=== PATIENT | female | born 1990 ===

== ENCOUNTER 2025-02-06 15:22 | Outpatient (CLI) | payer MEDICAID ==
[2025-02-06 15:41] LABS: Hematocrit 36.8 % (36.0-46.0); Hemoglobin 12.8 g/dL (12.2-16.2); Mean Corpuscular Hemoglobin 31.3 pg (28.0-32.0); Mean Corpuscular Volume 90.2 fL (80.0-100.0); Nucleated Red Blood Cells % 0.1 %
[2025-02-07] MEDS ORDERED: LEVO100T8 PO (11:25)
[2025-02-08 05:08] LABS: Chlamydia Trachomatis, NAA Negative (Negative); Neisseria gonorrhoeae, NAA Negative (Negative)
== END 2025-02-07 17:00 | disposition home or self-care (01) ==
LOC: LAB 15:22
PROVIDERS: ATTEND Obstetrics & Gynecology
DX: Z34.80 Encounter for supervision of other normal pregnancy, unspecified trimester (principal); Z72.51 High risk heterosexual behavior
CPT/HCPCS: 36415; 84443; 85025; 86780

== ENCOUNTER 2025-02-07 00:50 | Observation (INO) | payer MEDICAID ==
--- NOTE | 2025-02-07 10:59 | DVH ---
BIOPHYSICAL PROFILE HISTORY: AMA/hypothyroid TECHNIQUE: Multiple transabdominal real-time grayscale sonographic images through the gravid uterus of the fetus with duplex Doppler color flow and M-mode spectral analysis FINDINGS: BIOPHYSICAL PROFILE: breathing score: 2 movement score: 2 tone score: 2 Quantitative JOSSE score: 2 (JOSSE: 9.7 Cm.) Total score: 8/8 The cervix obscured by head Single live fetus in cephalic presentation. heart rate 143 beats per minute. Posterior Grade 2 placenta without previa or abruption Single live fetus at 35 weeks 3 days Biophysical profile score 8/8 corresponding to an NIC of 03/11/2025 IMPRESSION: 1. Biophysical profile score: 8/8 HS:Y
[2025-02-07] MEDS ORDERED: LEVO100T8 PO (11:25)
--- NOTE | 2025-02-08 12:43 | DVHDS2 ---
Physician Discharge Progress N Final Diagnosis: hypothyroidism 35 wks ,ama Operations or Procedures: Operations or Procedures nst reactive reviwed,sono Condition on Discharge: Good Disposition: Home Discharge Instructions: Diet: Regular Activity: No Restrictions, As Tolerated Follow Up/Referral: Follow [facility] next February 14 at 11:00 am for NST/BPP Medications: na Follow Up Care: Specialist: 1w Discharge Statement: "Patient was advised to return to the ER or call 911 if any headaches, dizziness, shortness of breath, chest pain, abdominal pain, bleeding, fevers, or worsening of medical condition. Patient was counseled about treatment plan, medications, possible side effects, patientverbalized understanding. All questions were answered to the best of my ability. This discharge took greater then 30 minutes in planning, reviewing docum entation, counseling the patient, and discussing with other team members." Visit Coding OBGYN Date of Service: Feb 07, 2025 Billing Provider: ANITRA BEAVER DO COUNTER MAKER Common Visit Codes: [id number] OBS CARE (HIGH) COUNTER MAKER Procedure Codes: 06948-57- NON-STRESS TEST ANITRA BEAVER DO Feb 08, 2025 12:43
== END 2025-02-07 11:48 | disposition home or self-care (01) ==
LOC: UNDOADMOB 10:17 → LDRP 10:17 → UNDODISOB 11:48
PROVIDERS: ADMIT Obstetrics & Gynecology; ATTEND Obstetrics & Gynecology
DX: O99.283 Endocrine, nutritional and metabolic diseases complicating pregnancy, third trimester (principal); E03.9 Hypothyroidism, unspecified; O09.523 Supervision of elderly multigravida, third trimester; Z3A.35 35 weeks gestation of pregnancy; Z98.890 Other specified postprocedural states
CPT/HCPCS: 59025; 76819; 81002; 94760; G0378

== ENCOUNTER 2025-02-14 06:10 | Observation (INO) | payer MEDICAID ==
[~2025-02-14 06:10] MED LIST: LEVO100T8 PO
--- NOTE | 2025-02-14 11:29 | DVH ---
BIOPHYSICAL PROFILE HISTORY: AMA/Hypothyroidism Comparison Study: US BIOPHYSICAL PROFILE on DOS: 02/07/25 TECHNIQUE: Multiple real-time grayscale sonographic images through the gravid uterus of the fetus wi th duplex Doppler color flow and M-mode spectral analysis FINDINGS: BIOPHYSICAL PROFILE: breathing score: 2 movement score: 2 tone score: 2 Quantitative JOSSE score: 2 (JOSSE: 9.7 Cm.) Total score: 8 The cervix is not visualized Single live fetus in cephalic presentation. heart rate 139 beats per minute. Posterior placenta without previa or abruption IMPRESSION: Biophysical profile score: 8
[2025-02-14] MEDS ORDERED: PREN27TA7 OR (11:53)
--- NOTE | 2025-02-14 12:01 | DVHDS2 ---
Physician Discharge Progress N Final Diagnosis: hypothyroid 36wks Operations or Procedures: Operations or Procedures nst reactive reviwed,sono Condition on Discharge: Good Disposition: Home Discharge Instructions: Diet: Regular Activity: No Restrictions, As Tolerated Medications: na Follow Up Care: Specialist: 4d Discharge Statement: "Patient was advised to return to the ER or call 911 if any headaches, dizziness, shortness of breath, chest pain, abdominal pain, bleeding, fevers, or worsening of medical condition. Patient was counseled about treatment plan, medications, possible side effects, patientverbalized understanding. All questions were answered to the best of my ability. This discharge took greater then 30 minutes in planning, reviewing do cumentation, counseling the patient, and discussing with other team members." Visit Coding OBGYN Date of Service: Feb 14, 2025 Billing Provider: ANITRA BEAVER DO SPEED OPERATOR Common Visit Codes: [id number] OBS CARE (HIGH) SPEED OPERATOR Procedure Codes: 49407-86- NON-STRESS TEST ANITRA BEAVER DO Feb 14, 2025 12:01
== END 2025-02-14 12:03 | disposition home or self-care (01) ==
LOC: UNDOADMOB 10:40 → LDRP 10:40
PROVIDERS: ADMIT Obstetrics & Gynecology; ATTEND Obstetrics & Gynecology
DX: O99.283 Endocrine, nutritional and metabolic diseases complicating pregnancy, third trimester (principal); E03.9 Hypothyroidism, unspecified; Z3A.36 36 weeks gestation of pregnancy; Z98.890 Other specified postprocedural states
CPT/HCPCS: 59025; 76819; 81002; 94760; G0378

== ENCOUNTER 2025-02-21 12:47 | Observation (INO) | payer MEDICAID ==
[~2025-02-21 12:47] MED LIST changes: +PREN27TA7 OR
--- NOTE | 2025-02-21 14:16 | DVH ---
BIOPHYSICAL PROFILE HISTORY: AMA, Hypothyroidism TECHNIQUE: Multiple transabdominal real-time grayscale sonographic images through the gravid uterus o f the fetus with duplex doppler color flow and M-mode spectral analysis FINDINGS: BIOPHYSICAL PROFILE: breathing score: 2 movement score: 2 tone score: 2 Quantitative JOSSE score: 2 (JOSSE: 10.8 cm.) Total score: 8/8 Single live fetus in cephalic presentation. heart rate 144 beats per minute. Fundal/posterior placenta without previa or abruption Biophysical profile score 8/8 corresponding to an NIC of 03/11/25 IMPRESSION: Biophysical profile score: 8/8
--- NOTE | 2025-02-22 12:39 | DVHDS2 ---
Physician Discharge Progress N Final Diagnosis: ama,hypothyroid 36wks Operations or Procedures: Operations or Procedures nst reactive reviwed,sono Condition on Discharge: Good Disposition: Home Discharge Instructions: Diet: Regular Activity: No Restrictions, As Tolerated Medications: na Follow Up Care: Specialist: 1w Discharge Statement: "Patient was advised to return to the ER or call 911 if any headaches, dizziness, shortness of breath, chest pain, abdominal pain, bleeding, fevers, or worsening of medical condition. Patient was counseled about treatment plan, medications, possible side effects, patientverbalized understanding. All questions were answered to the best of my ability. This discharge took greater then 30 minutes in planning, reviewing documentation, counseling the patient, and discussing with other team members." Visit Coding OBGYN Date of Service: Feb 21, 2025 Billing Provider: ANITRA BEAVER DO BARREL RAISER Common Visit Codes: [id number] OBS CARE (HIGH) BARREL RAISER Procedure Codes: 17438-22- NON-STRESS TEST ANITRA BEAVER DO Feb 22, 2025 12:39
== END 2025-02-21 14:34 | disposition home or self-care (01) ==
LOC: LDRP 12:47
PROVIDERS: ADMIT Obstetrics & Gynecology; ATTEND Obstetrics & Gynecology
DX: O99.283 Endocrine, nutritional and metabolic diseases complicating pregnancy, third trimester (principal); E03.9 Hypothyroidism, unspecified; O09.523 Supervision of elderly multigravida, third trimester; Z3A.36 36 weeks gestation of pregnancy; Z79.899 Other long term (current) drug therapy; Z98.890 Other specified postprocedural states
CPT/HCPCS: 59025; 76819; 81002; 94760; G0378

== ENCOUNTER 2025-02-28 07:05 | Observation (INO) | payer MEDICAID ==
--- NOTE | 2025-02-28 16:53 | DVH ---
BIOPHYSICAL PROFILE HISTORY: AMA/ Hypothyroid TECHNIQUE: Multiple real-time grayscale sonographic images through the gravid uterus of the fetus wi th duplex Doppler color flow. FINDINGS: BIOPHYSICAL PROFILE: breathing score: 0 movement score: 2 tone score: 2 Quantitative JOSSE score: 2 Total score: 6 out of 8 Single live intrauterine . heart rate 142 beats per minute. Cephalic lie. Placenta posteriorly/ fundally positioned. JOSSE 10.5 cm. IMPRESSION: Biophysical profile score: 6 out of 8. No breathing movements seen. Bekah present and aware at time of scan.
[2025-03-01] MEDS ORDERED: DOCU-94 PO (08:05)
[2025-03-01] MEDS ORDERED: HYDR-4072 PO (08:05)
[2025-03-01] MEDS ORDERED: IBUP-1456 PO (08:05)
--- NOTE | 2025-03-01 08:20 | DVHDS2 ---
Physician Discharge Progress N Final Diagnosis: AMA, Hypothroid 38wks Operations or Procedures: Operations or Procedures nst reactive reviwed,sono Condition on Discharge: Good Disposition: Home Discharge Instructions: Diet: Regular Activity: No Restrictions, As Tolerated Follow Up/Referral: Return tonight at 8pm for repeat ultrasound and come in at 4am on F[place] for Section Medications: na Follow Up Care: Specialist: 1d Discharge Statement: "Patient was advised to return to the ER or call 911 if any headaches, dizziness, shortness of breath, chest pain, abdominal pain, bleeding, fevers, or worsening of medical condition. Patient was counseled about treatment plan, medications, possible side effects, patientverbalized understanding. All questions were answered to the best of my ability. This discharge took greater then 30 minutes in planning, reviewing documentation, counseling the patient, and discussing with other team members." Visit Coding OBGYN Date of Service: Feb 28, 2025 Billing Provider: ANITRA BEAVER DO MOTEL MANAGER Common Visit Codes: 44901-[id number] INP/OBS CARE (HIGH) MOTEL MANAGER Procedure Codes: 45099-70- NON-STRESS TEST ANITRA BEAVER DO Mar 01, 2025 08:20
== END 2025-02-28 16:23 | disposition home or self-care (01) ==
LOC: LDRP 12:45
PROVIDERS: ADMIT Obstetrics & Gynecology; ATTEND Obstetrics & Gynecology
DX: O99.283 Endocrine, nutritional and metabolic diseases complicating pregnancy, third trimester (principal); E03.9 Hypothyroidism, unspecified; O09.523 Supervision of elderly multigravida, third trimester; Z3A.38 38 weeks gestation of pregnancy; Z79.899 Other long term (current) drug therapy; Z98.890 Other specified postprocedural states
CPT/HCPCS: 59025; 76819; 94760; G0378

== ENCOUNTER 2025-02-28 19:44 | Observation (INO) | payer MEDICAID ==
[~2025-02-28] VITALS: Ht 165.1 cm; Wt 88.0 kg
--- NOTE | 2025-02-28 21:53 | DVH ---
BIOPHYSICAL PROFILE HISTORY: repeat BPP compared to previous BPP done at 1449 on the February TECHNIQUE: Multiple transabdominal real-time grayscale sonographic images through the gravid uterus of the fetus with duplex Doppler color flow and M-mode spectral analysis FINDINGS: BIOPHYSICAL PROFILE: breathing score: 2 movement score: 2 tone score: 2 Quantitative JOSSE score: 2 (JOSSE: 9.2 Cm.) Total score: 8/8 The cervix obscured by Single live fetus in cephalic presentation. heart rate 138 beats per minute. Posterior Posterior Grade 2 placenta without previa or abruption Single live fetus at 38 weeks 3 days Biophysical profile score 8/8 corresponding to an NIC of 03/11/2025 IMPRESSION: 1. Biophysical profile score: 8/8 2. breathing was visualized on the current study.
--- NOTE | 2025-03-01 05:27 | DVHHP ---
ADMIT DATE: 02/28/2025 CHIEF COMPLAINT: Desires repeat section with bilateral tubal ligation. HISTORY OF PRESENT ILLNESS: The patient is a 34-year-old 2, para 1 with EDC ____ estimated gestational age of 38 plus weeks, admitted for repeat section with bilateral tubal ligation. The patient failed her BPP. Repeat BPP was okay; however, decision was made to proceed with couple of days earlier than ____ earlier than 39 weeks due to failed BPP. The patient has hypothyroidism and has advanced maternal age. PAST MEDICAL HISTORY: Hypothyroidism. PAST SURGICAL HISTORY: . SOCIAL HISTORY: None. FAMILY HISTORY: None. OBSTETRIC AND GYNECOLOGIC HISTORY: One section. REVIEW OF SYSTEMS: Consistent with HPI. PHYSICAL EXAMINATION: VITAL SIGNS: Stable, afebrile. HEENT: Within normal limits. CARDIOVASCULAR: Regular rate and rhythm. LUNGS: Clear to auscultation. BREASTS: Symmetrical, no masses. ABDOMEN: Gravid. Positive heart. PELVIC: External genitalia within normal. Vagina normal. Cervix 1 cm, 50% effaced. EXTREMITIES: No clubbing, cyanosis or edema. IMPRESSION: * Intrauterine at 38 plus weeks. * Failed BPP. * section x 1, desires repeat. * Hypothyroid. * AMA. * Desires repeat section with bilateral tubal ligation. PLAN: Informed consent obtained. Risks, complications of surgery including infection, bleeding, hematoma formation, injury to bowel and bladder, surrounding organ, possibility of DVT, pulmonary embolism, and risks of anesthesia discussed with the patient. Options reviewed. All questions answered. The patient fully understands. She wishes to proceed the planned procedure. DO KRAIG Ochoa/ELTON/ROBBIE TID: [id number] RECEIPT: [id number]
[2025-03-01] MEDS ORDERED: DOCU-94 PO (08:05)
[2025-03-01] MEDS ORDERED: HYDR-4072 PO (08:05)
[2025-03-01] MEDS ORDERED: IBUP-1456 PO (08:05)
== END 2025-02-28 21:14 | disposition home or self-care (01) ==
LOC: LDRP 19:44
PROVIDERS: ADMIT Obstetrics & Gynecology; ATTEND Obstetrics & Gynecology
DX: O99.283 Endocrine, nutritional and metabolic diseases complicating pregnancy, third trimester (principal); E03.9 Hypothyroidism, unspecified; Z3A.38 38 weeks gestation of pregnancy; Z98.890 Other specified postprocedural states
CPT/HCPCS: 76819; G0378

== ENCOUNTER 2025-03-01 03:59 | Inpatient (IN) | payer MEDICAID ==
[2025-02-28 15:59] LABS: Urine Budding Yeast FEW /hpf (None Seen); Urine Protein, UAD TRACE (Negative)
[2025-02-28 16:02] LABS: Amphetamine Screen, Urine Neg (NEGATIVE); Barbiturate Scree,Urine Neg (NEGATIVE); Benzodiazephine Screen, Urine Neg (NEGATIVE); Cannabinoid Screen, Urine Neg (NEGATIVE); Cocaine Screen, Urine Neg (NEGATIVE); Opiate Scree,Urine Neg (NEGATIVE); Phencyclidine Screen, Urine Neg (NEGATIVE)
[2025-02-28 16:23] LABS: Hematocrit 40.7 % (36.0-46.0); Hemoglobin 13.5 g/dL (12.2-16.2); Mean Corpuscular Hemoglobin 31.4 pg (28.0-32.0); Mean Corpuscular Volume 94.4 fL (80.0-100.0); Nucleated Red Blood Cells % 0.1 %
[2025-02-28 16:36] LABS: Alanine Aminotransferase 30 U/L (7-40); Albumin 3.7 g/dL (3.2-4.8); Anion Gap 9 (5-15); BUN/Creatinine Ratio 7.9 (10.0-20.0); Bilirubin, Total 0.4 mg/dL (0.2-1.0); Calcium 9.9 mg/dL (8.7-10.4); Carbon Dioxide 22 mmol/L (20-31); Chloride 104 mmol/L (98-107); Glucose 82 mg/dL (74-106); INR 0.9 (0.9-1.15); Partial Thromboplastin Time 24.9 SEC (24.5-34.5); Potassium 4.3 mmol/L (3.5-5.1); Prothrombin Time 9.6 sec (9.3-11.8); Total Protein 6.9 g/dL (5.7-8.2)
[2025-02-28 16:37] LABS: Alkaline Phosphatase 128 U/L (46-116); Blood Urea Nitrogen 5 mg/dL (9-23); Sodium 135 mmol/L (136-145)
[2025-03-01] VITALS (19 sets, daily range): BP systolic 105–125; BP diastolic 60–80; PULSE 54–80; RESP 16–18; TEMP 98.2–98.7; O2SAT 98–100
[~2025-03-01] VITALS: Ht 165.1 cm; Wt 88.0 kg
[2025-03-01] MEDS: LACTATED RINGER'S 1,000 ML IV SCH (04:30)
[2025-03-01] MEDS: LACTATED RINGER'S 1,000 ML IV ONE (05:38)
[2025-03-01] MEDS: ceFAZolin 2 GM/D5W50ml 50 ML IV ONE (06:43)
[2025-03-01] MEDS ORDERED: BUPIVACAINE/DEXTROSE MPF 0.75% 2 ML AMP IT ONE (07:01)
[2025-03-01] MEDS ORDERED: MORPHINE SULF PF 5 MG/10 ML VIAL ONE (07:01)
[2025-03-01] MEDS: TRANEXAMIC ACID 10 ML ONE (07:16)
[2025-03-01] MEDS ORDERED: PHENYLEPHRINE HCL 10 MG/ML VL ONE (07:31)
[2025-03-01] MEDS ORDERED: ONDANSETRON HCL 4 MG/2 ML VIAL ONE (07:31)
[2025-03-01] MEDS: CARBOPROST TROMETHAMINE 250 MCG/1ML VIAL IM ONE ×2 (07:45→08:01)
[2025-03-01] MEDS ORDERED: DIPHENOXYLATE W/ATROPINE 2.5 MG TAB ONE ×2 (07:54)
--- NOTE | 2025-03-01 07:59 | DVHOP2 ---
Operative Report DATE OF OPERATION: 03/01/25 PREOPERATIVE DIAGNOSES: 1. 38+WKS , desires repeat section.AMA,HYPOTHYROIDISM,FAILED BPP 2. Desires bilateral tubal ligation POSTOPERATIVE DIAGNOSES: 1. SAMNE,UTERINE ATONY 2. Desires bilateral tubal ligation PROCEDURES: Repeat section with bilateral tubal ligation via Filschie Clips SURGEON: Anitra Beaver D.O./CORAL ANESTHESIOLOGIST: Dr. GALVAN TYPE OF ANESTHESIA : ESTIMATED BLOOD LOSS: 800 mL CONSENT: The patient was informed of the risks and benefits of the procedure. These include but are not limited to , complications of anesthesia, postoperative infection, incomplete relief of symptoms, recurrence of symptoms, damage to blood vessels, nerves and tendons, deep venous thrombosis, pulmonary embolism and possible need for repeat surgery in the future. Surgery was opted. FINDINGS: Baby [F] with apgars [9] and [9]. Grossly normal appearing tubes and ovaries. UTERINE ATONY NOTED WHICH RESPONDED TO HEMOBATEX2 AND TXA TISSUE TO PATHOLOGY: Placenta. PROCEDURE IN DETAIL: The patient was taken to the operating room where she was placed under spinal anesthesia. She was then prepped and draped in the usual sterile manner in supine position with a leftward tilt. A Pfannenstiel skin incision was then made 2 cm above the symphysis pubis. This incision was carried to the underlying layer of fascia. The fascia was nicked in the midline and the incision was extended laterally. The superior aspect of the fascial incision was grasped and elevated. Underlying rectus muscle was dissected off bluntly. The same procedure was done to the inferior aspect of the fascial incision. The rectus muscles were then in the midline. Peritoneum was identified and entered. Peritoneal incision was extended superiorly and inferiorly with good visualization of the bladder. Bladder blade was inserted. Vesicouterine peritoneum was identified and entered. Lower uterine segment was incised in a transverse fashion. The infant was delivered from vertex presentation. The infant was baby [F] with Apgars of [9] and [9]. Placenta was then removed manually. Uterus was exteriorized and cleared off all clots and debris. Uterine incision was repaired using 0 Vicryl in a double-layered fashion. UTERINE ATONY NOTED,HEMOBATEX2 AND TXA GIVEN WHICH RESOLVED THE UTERINE ATONY. No bleeding was noted. Bilateral tubal ligation was then performed using [place]. Placed in the ampullary region and identifying the fimbria distally. The isthmic portion of the right tube was clipped using Filschie Clip. The same procedure was done on the opposite side. No bleeding was noted. Peritoneum was closed using 0 Vicryl, fascia was closed using 0 Maxon, and skin was closed using juan. Estimated blood loss was noted to be 500 mL. The patient tolerated the procedure well. She was taken to the recovery room in stable condition. Visit Coding OBGYN Date of Service: Mar 01, 2025 Billing Provider: ANITRA BEAVER DO STUCCO WORKER Common Visit Codes: [id number] INP/OBS CARE (HIGH) STUCCO WORKER Procedure Codes: 09501-RLHOV @ TIME OF , 48786-[id number] DELIVERY ONLY ANITRA BEAVER DO Mar 01, 2025 07:59
[2025-03-01] MEDS: LACT. RINGERS/OXYTOCIN 20UNITS 1,000 ML IV ONE (08:00)
[2025-03-01] MEDS ORDERED: ONDANSETRON HCL 4 MG/2 ML VIAL IV PRN ×3 (08:00→08:45)
[2025-03-01] MEDS: GUM (CHEWING) 1 GUM CHEW CHEW ONE (08:00)
--- NOTE | 2025-03-01 08:03 | POSTOP ---
Post-Operative Note Post-Operative Note Preop Diagnosis IUP AT 38WKS WITH FAILED BPP,AMA,DESIRES RCS WITH BTL,HYPOTHYROIDISM Postop Diagnosis: SAME Operation performed RCS WITH BTL Specimen BABY GIRL,APGARS 9-9 Anesthesia: Regional Anesthesiologist: CHELSEA Blood Loss(fluid mgmt) 800ML Surgeon Anitra Godfrey Core Manager CORAL Implant FILSCHIE CLIPS Complications & Mgmt NONE Additional Remarks H AND P [id number] Date 03/01/25 Time 08:00 Visit Coding OBGYN Date of Service: Mar 01, 2025 Billing Provider: ANITRA GODFREY DO ROBOT TECHNICIAN Common Visit Codes: [id number] INP/OBS CARE (HIGH) ROBOT TECHNICIAN Procedure Codes: 74981-MVMIS @ TIME OF , 99342-O-PVAPCNJ DELIVERY ONLY ANITRA GODFREY DO Mar 01, 2025 08:03
[2025-03-01] MEDS ORDERED: HYDR-4072 PO (08:05)
[2025-03-01] MEDS ORDERED: IBUP-1456 PO (08:05)
[2025-03-01] MEDS ORDERED: DOCU-94 PO (08:05)
[2025-03-01] MEDS ORDERED: diphenhydrAMINE HCL 50 MG/1 ML VL IV PRN (08:45)
[2025-03-01] MEDS: NALBUPHINE HCL 10 MG/1ml INJECTION SUBCUT ONE (08:45)
[2025-03-01] MEDS ORDERED: HYDROmorphone HCL 2 MG/ML VL/or syr IV PRN ×2 (08:45)
[2025-03-01] MEDS ORDERED: ACETAMINOPHEN IV 1000 MG/100ML (10MG/ML) IV PRN (08:45)
[2025-03-01] MEDS ORDERED: NALOXONE HCL 0.4 MG/ML VIAL IV PRN (08:45)
[2025-03-01] MEDS: ceFAZolin 1GM/50ML 50 ML IV SCH (14:33)
[2025-03-01] MEDS: ACETAMINOPHEN IV 1000 MG/100ML (10MG/ML) IV PRN (15:46)
[2025-03-01] MEDS: KETOROLAC TROMETH 30 MG/ML 1ML VIAL IV PRN (21:04)
[2025-03-01 22:02] LABS: Hematocrit 34.4 % (36.0-46.0); Hemoglobin 11.9 g/dL (12.2-16.2); Mean Corpuscular Hemoglobin 31.1 pg (28.0-32.0); Mean Corpuscular Volume 90.0 fL (80.0-100.0); Nucleated Red Blood Cells % 0.0 %
[2025-03-02] VITALS (14 sets, daily range): BP systolic 102–145; BP diastolic 49–97; PULSE 64–80; RESP 16–18; TEMP 98.2–98.6; O2SAT 95–99
--- NOTE | 2025-03-02 02:33 | DVHPN2 ---
Progress Note Date Seen: Mar 02, 2025 Subjective *Mary SEMICONDUCTOR WAFER INSPECTOR at bedside interpreting* Savanna is sitting up in bed and holding her baby upon entry to room. She just got back from a walk and is hoping to be able to attempt to void soon. -Lochia minimal -Regular diet well tolerated. -Ambulating w/o feeling dizzy or lightheaded. Has not voided since wylie catheter removal -Pain relieved with IV medication PRN. -No flatus or BM yet. -Combo feeding w/o problem vital signs Vital Sign Date Time Temp Pulse Resp B/P (MAP) Pulse Ox O2 Delivery O2 Flow Rate FiO2 03/01/25 23:27 74 98 03/01/25 23:00 98.5 16 120/72 (88) 98.5 03/01/25 19:00 Room Air 03/01/25 08:32 0 100 Total Intake and Output 03/01/25 03/01/25 03/02/25 15:00 23:00 07:00 Output Total 900 ml Balance -900 ml medications Current Medications Medications Dose Ordered Sig/Patty Route Start Time Stop Time Status Last Admin Dose Admin Lactated Ringer's 1,000 ml @ 125 mls/hr Q8H IV 03/01/25 04:30 Ondansetron HCl 4 mg Q4HP PRN IV 03/01/25 08:00 Diphenhydramine HCl 25 mg Q4HP PRN IV 03/01/25 08:45 Ondansetron HCl 4 mg Q4HP PRN IV 03/01/25 08:45 Ketorolac Tromethamine 30 mg Q6HP PRN IV 03/01/25 08:45 03/06/25 08:44 03/01/25 21:04 30 MG laboratory and microbiology Laboratory Tests 03/01/25 20:50 02/28/25 14:46 Test 02/28/25 14:46 Range/Units Serum Glucose 82 74-106 mg/dL Objective OBJECTIVE: -A&O x4. No apparent distress. Affect appropriate -Afebrile, VSS -Chest: heart and lung sounds normal. -Breasts: Nipples intact w/o cracks or soreness -Abdomen: normal BS, soft, non-tender, no rebound or guarding, fundus firm @ U- 1, -Lower abdominal incision site with dressing dry and intact. No edema, erythema or induration -Extremities: no edema or tenderness Problems(with codes): (1) Status post delivery Assessment/Plan ASSESSMENT: 34 yo now Post operative & ppd #1 s/p Repeat Section, doing well. Blood Type: A+ Combo feeding Rubella Immune PLAN: -Continue pain management with medications as previously ordered. Will transition to PO medication in the AM -Increase fluid intake and fiber in diet to promote regular bowel movements, Laxative PRN -Educated patient on self-care -Continue routine care Plan discussed with: Patient Visit Coding OBGYN Date of Service: Mar 02, 2025 Billing Provider: MICKI EDGAR CNM DISTRIBUTOR PUBLICATIONS Common Visit Codes: [id number] INP/OBS CARE(MOD) MICKI EDGAR CNM Mar 02, 2025 02:33
[2025-03-02] MEDS ORDERED: BISACODYL 10 MG RECT SUPP PR PRN (05:45)
[2025-03-02] MEDS ORDERED: SIMETHICONE 80 MG CHEWABLE TABLET PO PRN (05:45)
[2025-03-02] MEDS: ACETAMINOPHEN 325 MG TAB PO SCH (06:00)
[2025-03-02] MEDS: IBUPROFEN 800 MG TAB PO SCH (08:22)
[2025-03-02] MEDS: ceFAZolin 1GM/50ML 50 ML IV SCH (08:22)
[2025-03-02 09:31] LABS: Hematocrit 33.6 % (36.0-46.0); Hemoglobin 11.7 g/dL (12.2-16.2); Mean Corpuscular Hemoglobin 31.2 pg (28.0-32.0); Mean Corpuscular Volume 89.4 fL (80.0-100.0); Nucleated Red Blood Cells % 0.0 %
[2025-03-02] MEDS: DOCUSATE SOD 100 MG CAP PO SCH (10:00)
[2025-03-02] MEDS: HYDROcodone-ACET 5/325MG TAB PO PRN (17:25)
[2025-03-03 03:00] VITALS: BP 134/74; PULSE 62; RESP 16; RESP 18; TEMP 97.9; O2SAT 97
[2025-03-03 05:15] VITALS: BP 118/73
--- NOTE | 2025-03-03 05:22 | DVHPN2 ---
Progress Note Date Seen: Mar 03, 2025 Subjective S: > Lochia minimal. > Regular diet well tolerated. > Ambulating and voiding well w/o feeling dizzy or lightheaded. > Pain relieved with oral analgesics. > Has had a BM x1. > Breast & formula feeding of w/o problem > Desires and Requests to be discharged today vital signs Vital Sign Date Time Temp Pulse Resp B/P (MAP) Pulse Ox O2 Delivery O2 Flow Rate FiO2 03/03/25 03:00 97.9 62 16 134/74 (94) 97 97.9 03/02/25 18:45 Room Air 03/01/25 08:32 0 100 Total Intake and Output 03/02/25 03/02/25 03/03/25 15:00 23:00 07:00 Output Total 700 ml Balance -700 ml medications Current Medications Medications Dose Ordered Sig/Patty Route Start Time Stop Time Status Last Admin Dose Admin Diphenhydramine HCl 25 mg Q4HP PRN IV 03/01/25 08:45 Docusate Sodium 100 mg Q12HR PO 03/02/25 10:00 Dimethicone 80 mg QID PRN PO 03/02/25 05:45 Bisacodyl 10 mg DAILYP PRN SD 03/02/25 05:45 Ibuprofen 800 mg Q8HP PO 03/02/25 07:30 03/02/25 22:46 800 MG Acetaminophen/ Hydrocodone Bitart 1 tab Q4HPRN PRN PO 03/02/25 09:00 03/02/25 17:25 1 TAB Acetaminophen 650 mg Q6HP PO 03/02/25 06:00 Acetaminophen/ Hydrocodone Bitart 2 tab Q4HPRN PRN PO 03/03/25 03:15 laboratory and microbiology Laboratory Tests 03/02/25 08:20 02/28/25 14:46 Test 02/28/25 14:46 Range/Units Serum Glucose 82 74-106 mg/dL Objective O: > A&O x3 NAD. > Afebrile, VSS > Chest: heart and lung sounds normal. > Breasts: Nipples intact w/o cracks or soreness > Abdomen: normal BS, soft, non-tender, no rebound or guarding, fundus firm @ U-1, > Lower abdominal Incision site with Sylke dressing same clean, dry and intact. No edema, erythema or induration > Extremities: no edema or tenderness > Lochia - minimal Assessment/Plan _A/P: > 34yo now G2, 1103 ( 1 set of Twins) > Post operative & ppd #2 > s/p Repeat Section with BTL, doing well. > hypothyroidism > Blood Type: A Rh: Positive > Breast feeding and Formula feeding > Rubella Immune > Pain control with oral medications > Bowel regimen: Increase fluid intake and fiber in diet, Laxative PRN > PP BCM Plan: had BTL > Discharge plan: May discharge home later today if condition remains stable Plan discussed with: Patient, Other (Patient's Aunt) Visit Coding OBGYN Date of Service: Mar 03, 2025 Billing Provider: YADIRA KRUEGER CNM SHANK STITCHER Common Visit Codes: 02367-OCF/OBS DISCH DAY >30MIN YADIRA KRUEGER CNM Mar 03, 2025 05:22
[2025-03-03] MEDS: HYDROcodone-ACET 5/325MG TAB PO PRN (05:41)
--- NOTE | 2025-03-03 05:50 | DVHDS2 ---
Discharge Summary Date of Admission Mar 01, 2025 at 03:59 Date of Discharge: Mar 03, 2025 Admitting Diagnosis <> IUP at 38w 4d <> AMA <> Hypothyroidism <> Failed Bio-Physical Profile <> Desires Repeat C- section with BTL Wounds: Low abd incision with Sylke dressing on, same clean and dry Labs/Diagnostic Data: Laboratory Results Test 03/02/25 08:20 02/28/25 14:46 02/28/25 13:00 White Blood Count 10.4 10^3/uL (4.4-10.8) Red Blood Count 3.75 10^6/uL (4.0-5.20) Hemoglobin 11.7 g/dL (12.2-16.2) Hematocrit 33.6 % (36.0-46.0) Mean Corpuscular Volume 89.4 fL (80.0-100.0) Mean Corpuscular Hemoglobin 31.2 pg (28.0-32.0) Mean Corpuscular Hemoglobin Concent 34.9 g/dL (32.0-36.0) Red Cell Distribution Width 13.3 % (11.8-14.3) Platelet Count 167 10^3/uL (140-450) Mean Platelet Volume 9.1 fL (6.9-10.8) Neutrophils (%) (Auto) 84.1 % (37.0-80.0) Lymphocytes (%) (Auto) 6.3 % (10.0-50.0) Monocytes (%) (Auto) 9.0 % (0.0-12.0) Eosinophils (%) (Auto) 0.4 % (0.0-7.0) Basophils (%) (Auto) 0.2 % (0.0-2.0) Neutrophils # (Auto) 8.7 10 ^3/uL (1.6-8.6) Lymphocytes # (Auto) 0.7 10 ^3/uL (0.4-5.4) Monocytes # (Auto) 0.9 10 ^3/uL (0-1.3) Eosinophils # (Auto) 0 10 ^3/uL (0-0.8) Basophils # (Auto) 0 10 ^3/uL (0-0.2) Nucleated Red Blood Cells 0.0 % Prothrombin Time 9.6 sec (9.3-11.8) Prothrombin Time INR 0.90 (0.9-1.15) Activated Partial Thromboplast Time 24.9 SEC (24.5-34.5) Sodium Level 135 mmol/L (136-145) Potassium Level 4.3 mmol/L (3.5-5.1) Chloride Level 104 mmol/L (98-107) Carbon Dioxide Level 22 mmol/L (20-31) Anion Gap 9 (5-15) Blood Urea Nitrogen 5 mg/dL (9-23) Creatinine 0.63 mg/dL (0.550-1.02) Glomerular Filtration Rate Calc 119 mL/min (>90) BUN/Creatinine Ratio 7.9 (10.0-20.0) Serum Glucose 82 mg/dL (74-106) Calcium Level 9.9 mg/dL (8.7-10.4) Total Bilirubin 0.4 mg/dL (0.2-1.0) Aspartate Amino Transferase (AST) 32 U/L (13-40) Alanine Aminotransferase (ALT) 30 U/L (7-40) Alkaline Phosphatase 128 U/L (46-116) Total Protein 6.9 g/dL (5.7-8.2) Albumin 3.7 g/dL (3.2-4.8) Treponema pallidum Antibody Non-reactive (Negative) Urine Color Colorless (Yellow) Urine Clarity Turbid (Clear) Urine pH 6.5 (5.0-9.0) Urine Specific [place] 1.013 (1.001-1.035) Urine Protein Trace (Negative) Urine Ketones Negative (Negative) Urine Blood Negative /uL (Negative) Urine Nitrite Negative (Negative) Urine Bilirubin Negative (Negative) Urine Urobilinogen Normal mg/dL (Negative) Urine Leukocyte Esterase 1+ /uL (Negative) Urine RBC 2 /hpf (0 - 4) Urine Microscopic WBC 7 /HPF (0-5) Urine Squamous Epithelial Cells Few /hpf (<5) Urine Bacteria Many /hpf (None Seen) Urine Hyaline Casts Few /lpf (0 - 2) Urine Yeast (Budding) Few /hpf (None Seen) Urine Glucose Normal mg/dL (Normal) Urine Opiates Screen Neg (NEGATIVE) Urine Fentanyl Screen Neg (NEGATIVE) Urine Barbiturates Screen Neg (NEGATIVE) Urine Phencyclidine Screen Neg (NEGATIVE) Urine Amphetamines Screen Neg (NEGATIVE) Urine Benzodiazepines Screen Neg (NEGATIVE) Urine Cocaine Screen Neg (NEGATIVE) Urine Cannabinoids Screen Neg (NEGATIVE) Other Laboratory Tests 03/02/25 08:20 02/28/25 14:46 Brief Hx & Hospital Course: Admitted on03/01/25 at 38w 4d EGA 38w 5d d/t failed BPP, hypothyroidism, History of C- section x1. Desired Repeat C section with BTL. Had Repeat C- section with BTL under Regional anesthesia. She progressed to 2nd stage of labor and had a over an intact perineum. ( See Operation Note for details) Normal postoperative & course; meeting all post-operative & milestones w/o any problem or complications. Operations or Procedures <> Bio-Physical profile <> Repeat Section with BTL Condition at Discharge: Stable Final Diagnosis/Problems List <> SAME <>Term - Delivered <> hypothyroidism Discharge Disposition: Home Discharge Instruct/Medications Diet: Regular Diet comment: Routine regular diet rich in fiber, protein, iron and vitamin C with adequate fluid intake Activity: See Comment Activity comment: Advance as tolerated. Balance activities with rest periods. No heavy lifting, pushing or straining. Pelvic rest x 6weeks Follow Up/Referral: Follow up with OB Provider in 1 week Medications: Continue Levothyroixne, Analgesics & Laxatives as directed - as needed Scheduled Docusate Sodium (Colace), 1 CAP PO BID Levothyroxine Sodium (Levothyroxine Sodium), 100 MCG PO QAM, (Reported) Scheduled PRN Hydrocodone-Acetaminophen (Hydrocodone/Acetaminophen 10-325 mg), 1 TAB PO Q6HPRN PRN Ibuprofen (Ibuprofen), 800 MG PO TID PRN Miscellaneous Medications Vit W/ Ferrous Fumara (), 1 TAB OR, (Reported) Discharge Statement: <> Post-operative and emergency signs and symptoms including but not limited to pre-eclampsia precautions and signs of infection, PPH & of PPD reviewed with patient. <>Follow up with OB Provider in 1 week "Patient was advised to return to the ER or call 911 if any headaches, dizziness, shortness of breath, chest pain, abdominal pain, bleeding, fevers, or worsening of medical condition. Patient was counseled about treatment plan, medications, possible side effects, patientverbalized understanding. All questions were answered to the best of my ability. This discharge took greater then 30 minutes in planning, reviewing documentation, counseling the patient, and discussing with other team members." ASSESSMENT ASSESSMENT Hospital Course Admitted on03/01/25 at 38w 4d EGA 38w 5d d/t failed BPP, hypothyroidism, History of C- section x1. Desired Repeat C section with BTL. Had Repeat C- section with BTL under Regional anesthesia. She progressed to 2nd stage of labor and had a over an intact perineum. ( See Operation Note for details) Normal postoperative & course; meeting all post-operative & milestones w/o any problem or complications. Assessment <> SAME <> Term - Delivered Visit Coding OBGYN Date of Service: Mar 03, 2025 Billing Provider: YADIRA KRUEGER CNM REPAIRER GENERAL Common Visit Codes: 78867-JVS/OBS DISCH DAY >30MIN YADIRA KRUEGER CNM Mar 03, 2025 05:50
[2025-03-03 07:25] VITALS: BP 121/69; PULSE 65; RESP 16; TEMP 98.1; O2SAT 97
[2025-03-03] MEDS ORDERED: LEVOTHYROXINE SODIUM 100 MCG TAB PO ONE (08:00)
== END 2025-03-03 10:30 | disposition home or self-care (01) | DRG 539 ==
LOC: LDRP 03:59
PROVIDERS: ADMIT Obstetrics & Gynecology; ATTEND Obstetrics & Gynecology
PROC: 0UL70CZ Occlusion of Bilateral Fallopian Tubes with Extraluminal Device, Open Approach (ICD-10-PCS; 2025-03-01)
PROC: 10D00Z1 Extraction of Products of Conception, Low, Open Approach (ICD-10-PCS; principal; 2025-03-01 07:14)
DX: O34.211 Maternal care for low transverse scar from previous cesarean delivery (principal); R71.0 Precipitous drop in hematocrit; O99.284 Endocrine, nutritional and metabolic diseases complicating childbirth; E03.9 Hypothyroidism, unspecified; O62.2 Other uterine inertia; Z30.2 Encounter for sterilization; Z37.0 Single live birth; Z3A.38 38 weeks gestation of pregnancy
CPT/HCPCS: 36415; 59025; 80053; 80307; 81001; 85025; 85610; 85730; 86780; 86850; 86900; 86901; 94760; 94762; 96360; 96361; 96365; 96366; 96374; G0378; J0131; J0169; J1885; J2405; J2590